=== PATIENT | male | born 1995 | race Caucasian/White ===

== ENCOUNTER 2016-08-31 18:52 | Emergency (ER) | payer OTHER ==
[~2016-08-31] VITALS: Ht 167.6 cm; Wt 95.0 kg
[2016-08-31] MEDS ORDERED: TYLE500T78 PO (19:15)
[2016-08-31] MEDS ORDERED: KETOROLAC 30 MG/ML VIAL (J1885) IV ONE (20:45)
[2016-08-31] MEDS ORDERED: MORPHINE 4 MG/ML 1ML SYRINGE IV ONE (20:45)
--- NOTE | 2016-08-31 21:20 | REPUSA ---
CT of the lumbar spine without contrast Clinical history: Pain. Technique: Multiple axial CT images were obtained through the lumbar spine without administration of contrast. Coronal and sagittal 3-D reconstructed images were also obtained. Findings: The lumbar vertebral bodies are in satisfactory positioning and alignment. No fractures or dislocatio ns are demonstrated. A small cortical irregularity is seen along the superior anterior aspect of the L4 vertebral body. Intervertebral disc spaces are well-maintained. There is no evidence of facet subl uxation. The neural foramen appear grossly patent. The spinal canal demonstrates normal caliber and c ontour without evidence of spinal stenosis. The surrounding soft tissues are within normal limits. Impression: No acute fracture or traumatic injury. Chronic cortical irregularity in the anterior supe rior aspect of the L4 vertebral body, likely benign.
--- NOTE | 2016-08-31 21:20 | REPUSA ---
CT of the thoracic spine without contrast Clinical history: Pain. Technique: Multiple axial CT images were obtained through the thoracic spine without administration o f contrast. Coronal and sagittal 3-D reconstructed images were also obtained. Findings: The vertebral bodies are in satisfactory positioning and alignment. No fractures or dislocations are demonstrated. Intervertebral disc spaces are well-maintained. There is no evidence of facet subluxati on. The neural foramen appear grossly patent. The spinal canal demonstrates normal caliber and contou r without evidence of spinal stenosis. The surrounding soft tissues are within normal limits. Impression: No acute traumatic injury.
[2016-08-31] MEDS ORDERED: IBUP-1022 PO (21:27)
[2016-08-31] MEDS ORDERED: CYCL5TAB PO (21:27)
[2016-08-31 21:35] VITALS: BP 150/73
--- NOTE | 2016-09-01 08:01 | REP ---
Right knee two views : There is no fracture or dislocation. Mineralization and joint spaces are normal. There are no calcifications or foreign bodies. Impression: Negative right knee . Signed by Jez Manzo MD 09/01/2016 07:53 A
== END 2016-08-31 21:42 | disposition home or self-care (01) ==
LOC: M ED 18:52
DX: M25.561 Pain in right knee (principal); M54.5 Low back pain; W10.9XXA Fall (on) (from) unspecified stairs and steps, initial encounter; Y92.019 Unspecified place in single-family (private) house as the place of occurrence of the external cause; Y93.01 Activity, walking, marching and hiking; Y99.8 Other external cause status; F17.200 Nicotine dependence, unspecified, uncomplicated
CPT/HCPCS: 72128; 72131; 73560; 96374; 96375; 99283; J1885